=== PATIENT | female | born 1990 | race Caucasian/White ===

== ENCOUNTER → 2016-05-25 | Outpatient (CLI) | payer OTHER ==
[~2016-05-25] MED LIST: COLACE 100MG C100 MG PO
== END ==
LOC: KOH-I 10:59
DX: O26.893 Other specified pregnancy related conditions, third trimester (principal); R10.9 Unspecified abdominal pain; Z3A.00 Weeks of gestation of pregnancy not specified
CPT/HCPCS: 76705

== ENCOUNTER 2016-06-15 22:36 | Outpatient (CLI) | payer OTHER | END 2016-06-15 23:37 | disposition home or self-care (01) | LOC: GENOP 22:36 | DX: O36.8130 Decreased fetal movements, third trimester, not applicable or unspecified (principal); O99.89 Other specified diseases and conditions complicating pregnancy, childbirth and the puerperium; R10.9 Unspecified abdominal pain; M54.9 Dorsalgia, unspecified; Z3A.34 34 weeks gestation of pregnancy | CPT/HCPCS: 59025; 81001 ==

== ENCOUNTER 2016-07-05 13:27 | Outpatient (CLI) | payer OTHER | END 2016-07-06 12:30 | disposition home or self-care (01) | LOC: GENOP 13:27 | DX: O47.1 False labor at or after 37 completed weeks of gestation (principal); Z3A.37 37 weeks gestation of pregnancy | CPT/HCPCS: 81001; G0463 ==

== ENCOUNTER 2016-07-08 21:08 | Inpatient (IN) | payer OTHER ==
[~2016-07-08] VITALS: Ht 152.4 cm; Wt 125.2 kg
[2016-07-08 22:15] LABS: RED BLOOD COUNT 4.36 M/UL (4.00-5.10); WHITE BLOOD COUNT 10.6 K/UL (4.5-11.0)
[2016-07-09 02:41] LABS: HEMOGLOBIN 10.6 gm/dl (12.3-15.3)
[2016-07-10] MEDS ORDERED: COLACE 100MG C100 MG PO (10:31)
== END 2016-07-10 16:12 | disposition home or self-care (01) | DRG 765 ==
LOC: GENOP 21:08 → OB 22:10
PROVIDERS: Obstetrics & Gynecology; ADMIT Obstetrics & Gynecology
PROC: 3E0R3CZ (ICD-10-PCS; 2016-07-08)
PROC: 10D00Z1 Extraction of Products of Conception, Low, Open Approach (ICD-10-PCS; principal; 2016-07-08 22:53)
PROC: 3E0234Z Introduction of Serum, Toxoid and Vaccine into Muscle, Percutaneous Approach (ICD-10-PCS; 2016-07-09)
DX: O34.219 Maternal care for unspecified type scar from previous cesarean delivery (principal); Z68.43 Body mass index [BMI] 50.0-59.9, adult; N85.8 Other specified noninflammatory disorders of uterus; Z3A.39 39 weeks gestation of pregnancy; Z37.0 Single live birth; O99.214 Obesity complicating childbirth; E66.01 Morbid (severe) obesity due to excess calories; O34.43 Maternal care for other abnormalities of cervix, third trimester; N88.9 Noninflammatory disorder of cervix uteri, unspecified; Z23 Encounter for immunization; Z83.3 Family history of diabetes mellitus; Z83.49 Family history of other endocrine, nutritional and metabolic diseases
CPT/HCPCS: 36415; 81001; 82800; 85014; 85018; 85027; 90715; C9113; J0690; J1650; J1885; J2274; J2405; J2590; J2765; J3010; J3430; J7050; J7120

== ENCOUNTER 2020-10-09 11:42 | Emergency (ER) | payer OTHER, MEDICAID | END 2020-10-09 15:00 | disposition home or self-care (01) | LOC: ER1 11:42 | DX: Z23 Encounter for immunization (principal); U07.1 COVID-19 | CPT/HCPCS: 99284; M0243 ==